=== PATIENT | male | born 1970 | race American Indian/Alaskan Native ===

== ENCOUNTER 2017-07-05 18:50 | Emergency (ER) | payer SELFPAY ==
[2017-07-05 19:09] VITALS: TEMP 98.1
[2017-07-05] MEDS ORDERED: Tetracaine 0.5% Ophth 2 ML BOTTLE OU ONE (19:34)
[2017-07-05] MEDS ORDERED: Fluorescein 1 mg Ophthalmic Strip OS ONE (19:34)
[2017-07-05] MEDS ORDERED: Fluorescein 1 mg Ophthalmic Strip ONE (20:08)
[2017-07-05] MEDS ORDERED: Tetracaine 0.5% Ophth (OR ONLY) ONE (20:09)
--- NOTE | 2017-07-05 20:27 | C.PDOC ---
History Of Present Illness 46 year old male presents to the ED with complaints of foreign body sensation to the left eye. 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 Time Seen by Provider: 07/05/17 19:32 Chief Complaint (Nursing): Eye Problem History Per: Patient History/Exam Limitations: no limitations Onset/Duration Of Symptoms: Hrs Current Symptoms Are (Timing): Still Present Injury To Eye?: No Wears Contact Lens?: No Associated Symptoms: FB Sensation. denies: Decreased Vision, Discharge From Eye Recent travel outside of the [place]: No Past Medical History Reviewed: Historical Data, Nursing Documentation, Vital Signs Vital Signs: Last Vital Signs Temp 98.1 F 07/05/17 19:06 Pulse 78 07/05/17 20:54 Resp 18 07/05/17 20:54 BP 118/65 07/05/17 20:54 Pulse Ox 98 07/05/17 20:54 - Medical History PMH: No Chronic Diseases Surgical History: No Surg Hx Family History: States: Unknown Family Hx - Social History Hx Alcohol Use: Yes Hx Substance Use: No - Immunization History Hx Tetanus Toxoid Vaccination: No Hx Influenza Vaccination: No Hx Pneumococcal Vaccination: No Review Of Systems Constitutional: Negative for: Fever, Chills Eyes: Positive for: Pain (FOB sensation ), Conjunctivae Inflammation, Redness ENT: Negative for: Ear Pain, Nose Congestion, Throat Pain Cardiovascular: Negative for: Chest Pain, Palpitations Respiratory: Negative for: Cough, Shortness of Breath Skin: Negative for: Rash Neurological: Negative for: Headache, Dizziness Physical Exam - Physical Exam Appears: Non-toxic, No Acute Distress Skin: Warm, Dry Head: Atraumatic, Normacephalic Eye(s): bilateral: EOMI, right: Normal Inspection, PERRL, left: Eyelid Inflammation, Photophobia, Other (Diffuse conjunctival erythema ) Nose: Normal Oral Mucosa: Moist Neck: Normal ROM, Supple Chest: Symmetrical, No Deformity Respiratory: No Accessory Muscle Use, No Wheezing Extremity: Bilateral: Atraumatic, Normal ROM Neurological/Psych: Oriented x3, Normal Speech Gait: Steady ED Course And Treatment O2 Sat by Pulse Oximetry: 97 (room air ) Progress Note: Visual acuity test performed by biosolids management technician was 20/25 bilaterally. Fluorescein test was performed showing positive uptake at 5 o' clock. Patient was given Tetracaine 0.5% drops and eye was irrigated with 500 mL of sterile water. Patient reports relief. He was given Rx for ophthalmic drops and instructed to follow up with optho in timely manner Disposition Counseled Patient/Family Regarding: Diagnosis, Need For Followup, Rx Given - Disposition Referrals: Amauri Jackson MD [Staff Provider] - Disposition: HOME/ ROUTINE Disposition Time: 20:30 Condition: STABLE Additional Instructions: Please apply eye drops three times a day for 7days It is important that you follow up with opthomologist for further evaluation Prescriptions: Ofloxacin Ophth 0.3% [Ocuflox Ophth 0.3%] 1 drop OS TID #1 bottle Instructions: Corneal Abrasion (ED) Forms: [employer] (Sinhala) - POA Present On Arrival: None - Clinical Impression Clinical Impression: Corneal abrasion, Liquid substance in eye - PA / PROJECT ADMINISTRATOR / Resident Statement MD/DO has reviewed & agrees with the documentation as recorded. - Scribe Statement The provider has reviewed the documentation as recorded by the Scribe Hope Fu All medical record entries made by the Maikelibjasbir were at my direction and personally dictated by me. I have reviewed the chart and agree that the record accurately reflects my personal performance of the history, physical exam, medical decision making, and the department course for this patient. I have also personally directed, reviewed, and agree with the discharge instructions and disposition.
[2017-07-05 21:02] VITALS: BP 118/65; PULSE 78; RESP 18
[2017-07-05 21:30] VITALS: O2SAT 97
== END 2017-07-05 20:55 | disposition home or self-care (01) ==
LOC: C.ER 18:50
DX: S05.02XA Injury of conjunctiva and corneal abrasion without foreign body, left eye, initial encounter (principal); X58.XXXA Exposure to other specified factors, initial encounter; Y93.H3 Activity, building and construction; Y92.89 Other specified places as the place of occurrence of the external cause; Y99.8 Other external cause status